=== PATIENT | female | born 1980 | race Caucasian/White ===

== ENCOUNTER 2017-06-08 09:14 | Emergency (ER) | payer OTHER ==
[~2017-06-08] VITALS: Ht 170.2 cm; Wt 97.7 kg
[2017-06-08 09:16] VITALS: TEMP 36.7; Ht 170.2 cm; Wt 97.7 kg
[2017-06-08] MEDS ORDERED: BCPILLS PO (10:00)
[2017-06-08] MEDS ORDERED: DICY20TA35 PO (10:00)
[2017-06-08] MEDS ORDERED: PARO1TAB27 PO (10:00)
[2017-06-08] MEDS ORDERED: METO50TA7 PO (10:00)
--- NOTE | 2017-06-08 10:26 | EMERGENCY ROOM VISIT NOTE ---
History First contact with patient: 10:05 Chief Complaint: ABDOMINAL PAIN Stated Complaint: SEVERE STOMACH CRAMPING Nursing Triage Summary: Pt states she has IBS, had episode this AM of abd discomfort, denies N/V/D. Pt a/ox4, skin w/d/i, lungs CTA, abd soft, positive BS, states abd pain a 3 out of 10. History of Present Illness The patient is a 36 year old female who presents to the Emergency Room with complaints of bowel spasms associated with IBS. The patient states she has been having bowel spasms intermittently for the past 5-7 years. She states there are very few bowel disturbances, but she does chronically get spasms. Patient states over the past 2 months, her symptoms have been worsening. This morning, she states the spasm was so severe that she was unable to stand. The patient states her intent discomfort approximately once per week for the past month. She states the spasms are the same as they have been in the past, but more occurring frequently and they seem to be worse. The patient has been seen by Judith Ugarte from [facility] regarding the bowel spasms and does have a prescription for Bentyl. She states she has not followed up with Judith in at least one year. The patient states at that time, she was not having problems with her bowels. Patient states she normally takes 40 mg of Bentyl once when she experiences spasms, and the symptoms improve very quickly. She states over the past few weeks, after taking the Bentyl, the spasms seem to last at least one hour. The patient describes the pain as severe cramping, radiating into the pelvis on occasion. She states at the present time, she can tell that she is still experiencing the discomfort, but is very mild and passive. She denies any urinary disturbances, constipation, diarrhea, bloody stool, recent illness, nausea, vomiting, or other concerning symptoms. The patient has been experiencing increased stress, recently bought a house, and has been smoking more often than normal. The patient states her diet has been very poor over the past few weeks as well. Review of Systems A complete 10 point review of systems was reviewed with the patient with pertinent positives and negatives as per history of present illness. All else were negative. Past Medical/Surgical History Bowel spasms, IBS Social History Smoking Status: Current Every Day Smoker Smokeless Tobacco Use: No Alcohol Use: occasionally Drug Use: none Marital Status: Housing Status: lives with family Occupation Status: employed Current/Historical Medications Scheduled Control Pills ( Control Pills), 1 TAB PO DAILY Dicyclomine Hcl (Bentyl), 20 MG PO PRN Metoprolol Succ (Toprol Xl) (Toprol-Xl), 50 MG PO DAILY Paroxetine (Paxil), 20 MG PO DAILY Physical Exam Vital Signs Date Time Temp Pulse Resp B/P (MAP) Pulse Ox O2 Delivery O2 Flow Rate FiO2 06/08/17 11:32 83 18 142/78 100 Room Air 06/08/17 09:42 106 18 147/98 99 Room Air 06/08/17 09:16 36.7 139 18 180/146 100 Room Air Physical Exam VITALS: Vitals are noted on the nurse's note and reviewed by myself. Vital signs stable. GENERAL: This is a 36-year-old obese white female, in no acute distress, nondiaphoretic, well-developed well-nourished. SKIN: The skin was without rashes, erythema, edema, or bruising. There is no tenting of the skin. Capillary reflex less than 2 seconds. HEAD: Normocephalic atraumatic. EARS: External auditory canals clear, tympanic membranes pearly english without erythema or effusion bilaterally. EYES: Pupils equal round and reactive to light and accommodation. Conjunctivae without injection, sclerae without icterus. Extraocular movements intact. NOSE: Patent, turbinates without inflammation or discharge. No sinus tenderness. MOUTH: Mucous membranes moist. Tonsils are not enlarged. Pharynx without erythema or exudate. Uvula midline. Airway patent. Tongue does not deviate. NECK: Supple without nuchal rigidity. No lymphadenopathy. No thyromegaly. Cervical spine is nontender. No JVD. HEART: Regular rate and rhythm without murmurs gallops or rubs. LUNGS: Clear to auscultation bilaterally without wheezes, rales or rhonchi. No dullness to percussion. No retractions or accessory muscle use. ABDOMEN: Positive bowel sounds x 4. Normal tympanic percussion. Mild tenderness in RLQ and LLQ on palpation. The abdomen is soft, without masses or organomegaly. Hendrix sign negative. No guarding or rebound tenderness. MUSCULOSKELETAL: No muscle atrophy, erythema, or edema noted. Full range of motion without joint tenderness in all extremities. No tenderness to palpation. Normal gait. Strength 5/5 throughout. NEURO: Patient was alert and oriented to person place and time. Normal sensation to light and sharp touch. Deep tendon reflexes 2+ throughout. No focal neurological deficits. Medical Decision & Procedures ER Provider Diagnostic Interpretation: CBC is without leukocytosis, anemia, thrombocytopenia. Urinalysis did not show signs of infection or blood. There were trace ketones. CMP was without significant electrolyte, renal, hepatic abnormalities. Lipase was normal. Laboratory Results 06/08/17 09:55 Red Blood Count 4.47, Mean Corpuscular Volume 89.0, Mean Corpuscular Hemoglobin 30.0, Mean Corpuscular Hemoglobin Concent 33.7, Mean Platelet Volume 11.9, Neutrophils (%) (Auto) 66.6, Lymphocytes (%) (Auto) 24.6, Monocytes (%) (Auto) 7.2, Eosinophils (%) (Auto) 1.0, Basophils (%) (Auto) 0.3, Neutrophils # (Auto) 4.47, Lymphocytes # (Auto) 1.65, Monocytes # (Auto) 0.48, Eosinophils # (Auto) 0.07, Basophils # (Auto) 0.02 06/08/17 09:55 Test 06/08/17 09:55 06/08/17 10:48 White Blood Count 6.71 K/uL (4.8-10.8) Red Blood Count 4.47 M/uL (4.2-5.4) Hemoglobin 13.4 g/dL (12.0-16.0) Hematocrit 39.8 % (37-47) Mean Corpuscular Volume 89.0 fL (80-100) Mean Corpuscular Hemoglobin 30.0 pg (25-34) Mean Corpuscular Hemoglobin Concent 33.7 g/dl (32-36) Platelet Count 236 K/uL (130-400) Mean Platelet Volume 11.9 fL (7.4-10.4) Neutrophils (%) (Auto) 66.6 % Lymphocytes (%) (Auto) 24.6 % Monocytes (%) (Auto) 7.2 % Eosinophils (%) (Auto) 1.0 % Basophils (%) (Auto) 0.3 % Neutrophils # (Auto) 4.47 K/uL (1.4-6.5) Lymphocytes # (Auto) 1.65 K/uL (1.2-3.4) Monocytes # (Auto) 0.48 K/uL (0.11-0.59) Eosinophils # (Auto) 0.07 K/uL (0-0.5) Basophils # (Auto) 0.02 K/uL (0-0.2) RDW Standard Deviation 41.6 fL (36.4-46.3) RDW Coefficient of Variation 12.8 % (11.5-14.5) Immature Granulocyte % (Auto) 0.3 % Immature Granulocyte # (Auto) 0.02 K/uL (0.00-0.02) Anion Gap 7.0 mmol/L (3-11) Est Creatinine Clear Calc Drug Dose 96.2 ml/min Estimated GFR () 86.6 Estimated GFR (Non- 74.7 BUN/Creatinine Ratio 18.8 (10-20) Calcium Level 8.9 mg/dl (8.5-10.1) Total Bilirubin 0.2 mg/dl (0.2-1) Aspartate Amino Transf (AST/SGOT) 14 U/L (15-37) Alanine Aminotransferase (ALT/SGPT) 21 U/L (12-78) Alkaline Phosphatase 73 U/L (45-117) Total Protein 7.4 gm/dl (6.4-8.2) Albumin 3.5 gm/dl (3.4-5.0) Globulin 3.9 gm/dl (2.5-4.0) Albumin/Globulin Ratio 0.9 (0.9-2) Lipase 178 U/L (73-393) Urine Color YELLOW Urine Appearance CLEAR (CLEAR) Urine pH 5.5 (4.5-7.5) Urine Specific [place] 1.029 (1.000-1.030) Urine Protein NEG (NEG) Urine Glucose (UA) NEG (NEG) Urine Ketones TRACE (NEG) Urine Occult Blood NEG (NEG) Urine Nitrite NEG (NEG) Urine Bilirubin NEG (NEG) Urine Urobilinogen NEG (NEG) Urine Leukocyte Esterase NEG (NEG) ED Course The patient was seen and evaluated as above. IV access obtained and labs drawn. I did offer the patient pain medication, and she declines. I discussed lab results with the patient and her at bedside. Discharge instructions reviewed, and the patient was discharged home in good condition. Medical Decision Etiologies such as bowel spasms, appendicitis, diverticulitis, obstruction, inflammatory bowel disease, renal colic, PUD, biliary pathology, pancreatitis, mesenteric ischemia, aortic pathology, infections, genitourinary, UTI, perforated viscus, as well as others were entertained. This is a 36-year-old female patient who presents today complaining of worsening her bowel spasms. The patient does have a history of IBS of bowel spasms for the past 5-7 years. She states her symptoms now have been worsening over the past 2 months. In the last 2 months, the patient did buy a house, has been smoking more, and has had a very poor diet due to her increased level of stress. She has not followed up with her PCP, who has been managing the bowel spasms. The patient has been taking her Bentyl, and states while it helps, it seems to take longer to help than it had previously. The patient is not having any specific tenderness in any one location of the abdomen. Her symptoms are consistent with previous bowel spasms. I do not feel that imaging is necessary at this time, however it was certainly considered. I suspect the patient's increased level of stress are causing worsening bowel spasms, and encouraged her to follow up with her PCP and consider gastroenterology referral. The patient was in agreement with this assessment and plan. I did offer the patient pain medication throughout her stay as well as for prescription at home , and she declines. Medication Reconcilliation Current Medication List: was personally reviewed by me Blood Pressure Screening Patient's blood pressure: Normal blood pressure Impression Primary Impression: Spasm of bowel Additional Impression: Irritable bowel syndrome Departure Information Dispostion Home / Self-Care Condition GOOD Referrals Laurie Ugarte.Carissa PA-C (PCP) Sindy Ferrell, DO Patient Instructions ED IBS, [facility] Additional Instructions You were seen in the emergency department today for bowel spasms. Labs did not reveal any acute findings which would be concerning for infection. Please continue to take Bentyl as prescribed. You may increase the dose to 40mg three times daily if needed. Follow-up with your PCP and consider GI referral for worsening symptoms. Eat a bland diet, decrease smoking, and try to reduce stress, as all of these things can cause the increased irritation in your bowel. Return to the ED for worsening pain which is not relieved with medication, chest pain, dyspnea, bloody diarrhea, nausea, vomiting, or other concerning symptoms. Problem Qualifiers Additional Impression: Irritable bowel syndrome Irritable bowel syndrome type: without diarrhea Qualified Codes: K58.9 - Irritable bowel syndrome without diarrhea
[2017-06-08 10:37] LABS: BASO % 0.3 %; BASO ABS # 0.02 K/uL (0-0.2); COMPLETE YES; HEMATOCRIT 39.8 % (37-47); IG% 0.3 %; LYMPH % 24.6 %; LYMPH ABS # 1.65 K/uL (1.2-3.4); MEAN CORPUSCULAR HGB CONC 33.7 g/dl (32-36); MEAN PLATELET VOLUME 11.9 fL (7.4-10.4); MONO % 7.2 %; NEUT % 66.6 %; PLATELET COUNT 236 K/uL (130-400); RED BLOOD COUNT 4.47 M/uL (4.2-5.4); WHITE BLOOD COUNT 6.71 K/uL (4.8-10.8)
[2017-06-08 10:44] LABS: BUN/CREATININE RATIO 18.8 (10-20); CALCIUM 8.9 mg/dl (8.5-10.1); CREATININE 0.98 mg/dl (0.60-1.20)
[2017-06-08 10:47] LABS: ALB/GLOB RATIO 0.9 (0.9-2)
[2017-06-08 10:56] LABS: URINE APPEARANCE CLEAR (CLEAR); URINE BILIRUBIN NEG (NEG); URINE COLOR YELLOW; URINE NITRITE NEG (NEG); URINE PH 5.5 (4.5-7.5); URINE SPECIFIC GRAVITY 1.029 (1.000-1.030); UROBILINOGEN NEG (NEG); ZZUR CULT IF INDIC CLEAN CATCH NO
[2017-06-08 10:59] LABS: MANUAL MICROSCOPIC REQUIRED? NO; REVIEW REQ? NO
[2017-06-08 11:32] VITALS: BP 142/78; PULSE 83; O2SAT 100
== END 2017-06-08 12:16 | disposition home or self-care (01) ==
LOC: C.EDB 09:17 → C.EDA 12:16
DX: K58.9 Irritable bowel syndrome, unspecified (principal); F17.200 Nicotine dependence, unspecified, uncomplicated; Z79.3 Long term (current) use of hormonal contraceptives

== ENCOUNTER 2019-06-14 08:15 | Inpatient (IN) ==
--- NOTE | 2019-06-07 09:28 | Anesthesiology Consultation ---
Date of Service June 07, 2019 Assessment & Plan (1) Encounter for pre-operative examination: - Scheduled c/s for Breech positioning, gestational HTN - ASA: on for preeclampsia prevention/perioperative instructions per OB Chart Review Chart Review: Acceptable Risk for Surgery (pending labs AM DOS) and Patient seen in Pre Admission Testing Teaching & Discussion Pre-Anesthesia Teaching/Discussion Notes: Instructed NPO after midnight before surgery,except medications with 15 cc of water. Medication instructions provided according to the PAT guidelines. History Surgery Operation Date: 06/14/19 08:15 Proposed Procedures p Section in LD - Pepe Monahan MD Height/Weight Height: 5 ft 7 in Weight: 112.2 kg Allergies Allergy/AdvReac Type Severity Reaction Status Date / Time adhesive Allergy Mild occasional Verified 06/04/19 10:32 redness/irritation Iodinated Contrast Media Allergy Mild Hives/blotc Verified 06/04/19 10:31 hy Medications Home Medications Medication Instructions Recorded Confirmed Last Taken [id number] fumarate-FA 1 tab PO DAILY 06/04/19 06/04/19 Unknown [] aspirin [Aspirin Low Dose] 81 mg PO QAM 06/04/19 06/04/19 Unknown calcium carbonate [Tums] 200 mg PO QID PRN 06/04/19 06/04/19 Unknown famotidine [Pepcid] 20 mg PO DAILY PRN 06/04/19 06/04/19 Unknown ferrous sulfate 325 mg PO Q2D 06/04/19 06/04/19 Unknown labetalol 200 mg PO BID 06/04/19 06/04/19 Unknown Past Medical History Medical History Anemia mild ( related)/no known hx of prior blood transfusion Anxiety hx/no medications currently GERD (gastroesophageal reflux disease) worsened with Hypertension prior to Obesity Sleep apnea dx'd 04/2019; prescribed CPAP- unable to tolerate/not using a device currently* Exercise / Class Metabolic Activity III < 4 Walking/Shop/Light housework Past Family History Family History Grandmother (Maternal) Family hx of colon cancer Family hx colonic polyps Grandfather (Maternal) Family hx of colon cancer Family hx colonic polyps Mother Family hx of colon cancer Family hx colonic polyps Aunt Family hx colonic polyps Uncle Family hx colonic polyps Other No family history of adverse response to anesthesia Past Surgical History Surgical History History of adenoidectomy History of tonsillectomy Past Anesthesia History No Hx of Anesthesia Complications and No Family Hx of Anesthesia Complications (except sister with PONV) History of PONV No Hx of PONV and No Hx of Motion Sickness Social History Smoking Status: Former smoker tobacco type: cigarettes Smoking cigarettes per day: 1 ppd x 8 years Do You Dip or Chew Tobacco: No Smoking End Date: Quit 2016 Hx Alcohol Use: No Hx Substance Use: No substance use type: does not use Review of Systems + reflux (worsened with ). Patient denies chest pain, shortness of breath, cough, wheezing, palpitations. Physical Exam Vital Signs VITALS BP 116/74 P 86 TEMP 98%RA SP02 97.7 RESP 16 PHYSICAL Full neck and c-spine range of motion. Full TMJ range of motion. TMD 3.5 finger breaths Mallampati Score 3 Dentition: intact Lungs: clear throughout to auscultation Cardiac: regular rate and rhythm, no murmurs noted Spine: normal Carotid arteries: negative bruit Extremities: no edema
--- NOTE | 2019-06-07 09:29 | PAT Medication Instructions ---
Medication Instructions Date of Service June 07, 2019 Home Medications [id number] fumarate-FA [] 1 tab PO DAILY aspirin [Aspirin Low Dose] 81 mg PO QAM calcium carbonate [Tums] 200 mg PO QID PRN famotidine [Pepcid] 20 mg PO DAILY PRN ferrous sulfate 325 mg PO Q2D labetalol 200 mg PO BID ASK your prescriber and surgeon aspirin [Aspirin Low Dose] 81 mg PO QAM DO NOT take the morning of surgery [id number] fumarate-FA [] 1 tab PO DAILY calcium carbonate [Tums] 200 mg PO QID PRN famotidine [Pepcid] 20 mg PO DAILY PRN ferrous sulfate 325 mg PO Q2D Take morning of surgery With a small sip of water, OTHERWISE NOTHING TO EAT OR DRINK AFTER MIDNIGHT: labetalol 200 mg PO BID Take evening before surgery calcium carbonate [Tums] 200 mg PO QID PRN (if needed) famotidine [Pepcid] 20 mg PO DAILY PRN (if needed) labetalol 200 mg PO BID Other Notes If you have any questions please call us at [phone] or [phone] or [phone] or [phone]
--- NOTE | 2019-06-15 01:06 | History and Physical Report ---
DATE OF ADMISSION: 06/15/2019 She is going for a on 06/15/2019 at [facility]. REASON FOR ADMISSION: Term , breech presentation. HISTORY OF PRESENT ILLNESS: The patient is a 38-year-old female 1, para 0 at 39 weeks and 6 days, admitted for elective primary section for michelle breech presentation. MEDICAL HISTORY: Positive for advanced maternal age, chronic hypertension on labetalol, and group B strep positive, and large for gestational age baby, also obesity class 2. SOCIAL HISTORY: The patient is a former smoker. Denies alcohol or drug use. FAMILY HISTORY: Noncontributory. REVIEW OF SYSTEMS: Negative. ALLERGIES: IODINATED DIAGNOSTIC AGENTS. CURRENT MEDICATIONS: Include iron, aspirin 81 mg per day, labetalol 200 mg divided 2 times per day, and vitamins. Her course otherwise has been uncomplicated. PHYSICAL EXAMINATION: VITAL SIGNS: Stable. HEENT: Within normal limits. LUNGS: Clear to auscultation. CARDIOVASCULAR: Regular rate and rhythm. ABDOMEN: Soft, gravid. heart tone category 1, breech presentation. NEUROLOGICAL: Intact. EXTREMITIES: Within normal limits. ASSESSMENT: Michelle breech presentation, group B strep positive with chronic hypertension. PLAN: Primary section.
[2019-06-15] MEDS ORDERED: CEFAZOLIN 3,000 MG in DEXTROSE 5% 50 ML IV SCH (06:00)
[2019-06-15] MEDS ORDERED: CITRIC ACID/SODIUM CITRATE 15 ML UDC PO SCH (06:00)
[2019-06-15] MEDS ORDERED: LACTATED RINGER'S 1,000 ML IV SCH ×2 (06:00→09:12)
--- NOTE | 2019-06-15 06:02 | History & Physical Bridge Note ---
Date of Service June 15, 2019 History & Physical Bridge Note I have examined the patient, reviewed the History & Physical and in the interval since the performance of the History & Physical I have noted the following changes of clinical significance: no changes noted
[2019-06-15 06:04] LABS: Basophils # (auto) 0.02 K/uL (0-0.2); Basophils % (auto) 0.2 %; Eosinophils # (auto) 0.05 K/uL (0-0.5); Eosinophils % (auto) 0.4 %; Hematocrit (blood only) 36.7 % (37-47); Hemoglobin 12.5 g/dL (12.0-16.0); Immature Granulocytes # (auto) 0.05 K/uL (0.00-0.02); Immature Granulocytes % (auto) 0.4 %; Lymphocytes # (auto) 1.81 K/uL (1.2-3.4); Lymphocytes % (auto) 15.6 %; Mean Corpuscular Hemoglobin 30.3 pg (25-34); Mean Corpuscular Volume 88.9 fL (80-100); Monocytes # (auto) 0.68 K/uL (0.11-0.59); Monocytes % (auto) 5.9 %; Neutrophils # (auto) 8.99 K/uL (1.4-6.5); Neutrophils % (auto) 77.5 %; Platelet Count 212 K/uL (130-400); RDW Coefficient of Variation 13.5 % (11.5-14.5); Red Blood Count 4.13 M/uL (4.2-5.4)
[2019-06-15 06:07] LABS: Mean Corpuscular Hgb Conc 34.1 g/dL (32-36)
[2019-06-15] MEDS ORDERED: OXYTOCIN 10 UNITS/ML VIAL ONE (06:57)
[2019-06-15] MEDS ORDERED: fentaNYL citrate 100 MCG/2 ML VIAL ONE (06:58)
[2019-06-15] MEDS ORDERED: MoRPHine SULFATE PF 1 MG/ML 10 ML AMP/VIAL ONE (06:58)
--- NOTE | 2019-06-15 07:34 | Obstetrical Progress Note ---
Date of Service June 15, 2019 Subjective Bedside ultrasound done confirming breech presentation. Results & Data Vital Signs (Past 12 Hours) Vital Signs Temp Pulse Resp BP 06/15/19 05:48 36.4 C L 122 H 18 142/80 H 06/15/19 05:47 122 H 142/80 H
[2019-06-15] MEDS ORDERED: ePHEDrine sulfate 50 MG/ML AMP IV PRN (07:51)
[2019-06-15] MEDS ORDERED: NALOXONE HCL 1 MG in SODIUM CHLORIDE 0.9% 1000ML 1,000 ML IV PRN (07:51)
[2019-06-15] MEDS ORDERED: MEPERIDINE HCL 25 MG/ML CARP IV PRN (07:51)
[2019-06-15] MEDS ORDERED: MoRPHine SULFATE PF 1 MG/ML 10 ML AMP/VIAL INT SPINAL ONE (07:51)
[2019-06-15] MEDS ORDERED: NALOXONE HCL 0.08 MG in SYRINGE 1.8 ML IV PRN (07:51)
[2019-06-15] MEDS ORDERED: DiphenhydrAMINE HCL 50 MG/ML VIAL IV PRN (07:51)
[2019-06-15] MEDS ORDERED: NALBUPHINE HCL INJ 10 MG/ML AMP IV PRN (07:51)
[2019-06-15] MEDS ORDERED: LACTATED RINGER'S 500 ML IV PRN (07:51)
[2019-06-15] MEDS ORDERED: ONDANSETRON INJ 2 MG/ML 2 ML VIAL IV PRN (07:51)
[2019-06-15] MEDS ORDERED: NALOXONE HCL 0.4 MG/1 ML VIAL/CARP IV PRN (07:51)
[2019-06-15] MEDS ORDERED: PHENYLEPHRINE 100MCG/ML 5ML SYR ONE (07:55)
[2019-06-15] MEDS ORDERED: NO NARCOTICS OR SEDATIVES SCH (08:00)
[2019-06-15] MEDS ORDERED: DC INTRASPINAL MORPHINE SCH (08:00)
[2019-06-15] MEDS ORDERED: SODIUM CHLORIDE 0.9% 1000ML 1,000 ML IV SCH (08:00)
[2019-06-15] MEDS ORDERED: ePHEDrine sulfate 50 MG/ML SYR ONE (08:05)
--- NOTE | 2019-06-15 08:48 | Post Operative Brief Note ---
Immediate Post Op Note v1 Date of Surgery June 15, 2019 Pre & Post Diagnosis Operation Date: 06/15/19 07:30 Pre-Op Diagnosis: Breech Presentation, Gestational Hypertension Post-Op Diagnosis: Breech Presentation, Gestational Hypertension, with delivery of living male child at 0806 I identified the patient and participated in the time-out.: Yes Procedure Operation Date: 06/15/19 07:30 Actual Procedures p Section(Bilateral) - Pepe Monahan MD Surgeon Pepe Monahan MD Mixing Plant Dumper Julianan Estimated Blood Loss 400 Findings Consistent with Post-Op Diagnosis Drains Lopez Catheter
[2019-06-15] MEDS ORDERED: NON-FORMULARY MEDICATION (Pnv133-Ferrous Fumarate-Fa [Prenatal] 1 TAB) PO SCH (09:12)
[2019-06-15] MEDS ORDERED: NON-FORMULARY MEDICATION (Ferrous Sulfate 325 MG) PO SCH (09:12)
[2019-06-15] MEDS ORDERED: DIPHTHERIA/TETANUS/PERTUSSIS 0.5 ML SYR/VIAL IM ONE (09:12)
[2019-06-15] MEDS ORDERED: CALCIUM CARBONATE 500 MG CHEWABLE TAB PO PRN (09:12)
[2019-06-15] MEDS ORDERED: SENNA 8.6 MG TAB PO PRN (09:12)
[2019-06-15] MEDS ORDERED: MAGNESIUM HYDROXIDE SUSP 30 ML UDC PO PRN (09:12)
[2019-06-15] MEDS ORDERED: MEASLES, MUMPS & RUBELLA VIRUS VIAL SQ ONE (09:12)
[2019-06-15] MEDS ORDERED: BENZOCAINE 20% AER SPR 82.5 GM CAN EXT PRN (09:12)
[2019-06-15] MEDS ORDERED: HYDROCORTISONE ACETATE 25 MG SUPP PR PRN (09:12)
[2019-06-15] MEDS ORDERED: FAMOTIDINE 20 MG TAB PO PRN (09:12)
[2019-06-15] MEDS ORDERED: SUPERCREAM 0.870% 15 GM JAR EXT PRN (09:12)
--- NOTE | 2019-06-15 09:42 | Anesthesiology Progress Note ---
Date of Service June 15, 2019 Anesthesia Post Procedure Vital Signs Vital Signs: Temp Pulse Resp BP Pulse Ox 06/15/19 09:39 75 133/65 06/15/19 09:38 75 98 06/15/19 09:33 94 H 98 06/15/19 09:29 82 127/62 06/15/19 09:28 83 99 06/15/19 09:23 87 100 06/15/19 09:19 84 123/66 06/15/19 09:18 88 100 06/15/19 09:13 87 100 06/15/19 09:09 86 130/65 06/15/19 09:08 95 H 100 06/15/19 09:03 90 100 06/15/19 08:59 88 127/63 06/15/19 08:58 89 100 06/15/19 08:53 95 H 100 06/15/19 08:49 88 116/62 06/15/19 08:48 87 100 06/15/19 05:48 97.5 F L 122 H 18 142/80 H 06/15/19 05:47 122 H 142/80 H Transfer of Care Handoff Completed per policy Notes Mental Status: alert / awake / arousable and participated in evaluation Nausea / Vomiting: adequately controlled Pain: adequately controlled Airway Patency, RR, SpO2: stable & adequate BP & HR: stable & adequate Hydration State: stable & adequate Neuraxial Anesthesia: was administered and sensory block is resolving Anesthetic Complications: no major complications apparent and Pt Satisfied with anesthetic care
[2019-06-15] MEDS: OXYTOCIN 20 UNITS in LACTATED RINGER'S 1,000 ML IV SCH ×2 (10:15→18:23)
[2019-06-15] MEDS: LABETALOL HCL 200 MG TAB PO SCH ×2 (10:17→20:45)
[2019-06-15] MEDS: ASPIRIN 81 MG ECTAB PO SCH (10:18)
[2019-06-15] MEDS: KETOROLAC 30 MG/ML VIAL IV PRN ×2 (12:08→23:48)
[2019-06-15] MEDS: SIMETHICONE 80 MG CHEW PO SCH ×3 (13:00→20:44)
[2019-06-15] MEDS: DOCUSATE SODIUM 100 MG CAP PO SCH (20:44)
[2019-06-16] MEDS ORDERED: ONDANSETRON INJ 2 MG/ML 2 ML VIAL IV PRN (01:53)
[2019-06-16] MEDS ORDERED: KETOROLAC 30 MG/ML VIAL IV PRN (01:53)
[2019-06-16] MEDS ORDERED: PROMETHAZINE HCL 25 MG in SODIUM CHLORIDE 0.9% 50 ML IV PRN (01:53)
[2019-06-16] MEDS ORDERED: MEPERIDINE HCL 50 MG/ML CARP IV PRN (01:53)
[2019-06-16] MEDS ORDERED: DiphenhydrAMINE HCL 50 MG/ML VIAL IV PRN (01:53)
--- NOTE | 2019-06-16 02:17 | Operative Report ---
DATE OF OPERATION: 06/15/2019 PREOPERATIVE DIAGNOSIS: Term breech presentation. POSTOPERATIVE DIAGNOSIS: Term breech presentation. PROCEDURE: Primary section, low segment transverse. SURGEON: Pepe Monahan MD SALES RECRUITING COORDINATOR: Dr. Preciado. ANESTHESIA: Spinal with Duramorph. FINDINGS: Live male, Apgars 8 and 9; 9 pounds 6.4 ounces, michelle breech presentation. ESTIMATED BLOOD LOSS: 400 mL. TOTAL FLUIDS: 1100 mL. URINE OUTPUT: 50 mL. COMPLICATIONS: None. SURGICAL SPECIMEN: Cord blood and placenta. CLINICAL HISTORY: The patient is a 38-year-old female, para 0-0-0-0 at 39 weeks and 6 days, admitted for an elective primary section for michelle breech presentation. Ultrasound was done at the bedside prior to the procedure to confirm breech presentation. A timeout was called prior to the start of the procedure and antibiotics were given preop. DESCRIPTION OF PROCEDURE: Under satisfactory spinal anesthesia, the patient was prepped and draped in usual sterile fashion. A low Pfannenstiel incision was made entering into the abdominal cavity in successive layers without difficulty. Upon entering into the abdominal cavity, pickups with teeth were used to develop a bladder flap which was sharply dissected down with Metzenbaum scissors. The bladder blade was entered. A low segment transverse incision was made in the lower uterine segment. The incision was nicked. Clear fluid was noted. The incision was widened in the AP diameter. The infant was then delivered without difficulty from the michelle breech presentation. The baby had spontaneous cry and respirations. Delayed cord clamping was then accomplished for 1 minute followed by cutting of the cord and cord blood was then obtained. Apgars were 8 and 9, live male, 9 pounds 6.4 ounces. Placenta was then delivered spontaneously and intact. Uterus was then exteriorized. Ring forceps were then placed on the inferior margin in both angles. Another ring was then used to dilate the cervix. Pitocin was started in the IV. The uterus was firming up. A lap pad was then used to clear out any debris from the uterus. Uterus was closed in double layered closure with 0 Vicryl suture in continuous interlocking fashion followed by second imbricating suture of 0 Vicryl suture. Tubes and ovaries bilaterally were found to be within normal limits. The pelvic cavity was then irrigated to clear. Uterus was then placed back into the normal anatomical position. The initial sponge, needle, and instrument count were found to be correct. The fascia was then reapproximated from both ends using 0 Vicryl suture in a continuous fashion. Subcuticular space was then closed with 3-0 plain suture followed by the skin being closed with 4-0 Monocryl suture. At the end of the procedure, clear urine was noted. Estimated blood loss 400 mL. Total fluids 1100 mL crystalloids. The final sponge, needle and instrument count were found to be correct. The patient had Steri-Strips placed on the dressing and she was taken to recovery room in stable condition. I attest to the content of the Intraoperative Record and any orders documented therein. Any exception s are noted below.
[2019-06-16] MEDS: IBUPROFEN 600 MG TAB PO PRN ×4 (04:50→19:56)
[2019-06-16] MEDS: OXYCODONE/ACETAMINOPHEN 5mg/325mg TAB PO PRN ×4 (04:51→23:30)
[2019-06-16 06:41] LABS: Basophils # (auto) 0.01 K/uL (0-0.2); Basophils % (auto) 0.1 %; Eosinophils % (auto) 0.7 %; Hematocrit (blood only) 32.7 % (37-47); Hemoglobin 11.1 g/dL (12.0-16.0); Immature Granulocytes # (auto) 0.05 K/uL (0.00-0.02); Immature Granulocytes % (auto) 0.3 %; Lymphocytes % (auto) 8.3 %; Mean Corpuscular Hemoglobin 30.2 pg (25-34); Mean Corpuscular Hgb Conc 33.9 g/dL (32-36); Mean Corpuscular Volume 89.1 fL (80-100); Monocytes % (auto) 6.9 %; Neutrophils # (auto) 12.11 K/uL (1.4-6.5); Neutrophils % (auto) 83.7 %; Platelet Count 185 K/uL (130-400); RDW Coefficient of Variation 13.5 % (11.5-14.5); RDW Standard Deviation 44.3 fL (36.4-46.3); Red Blood Count 3.67 M/uL (4.2-5.4); White Blood Count 14.47 K/uL (4.8-10.8)
--- NOTE | 2019-06-16 08:07 | Obstetrical Progress Note ---
Date of Service June 16, 2019 Subjective Patient is seen and examined. She feels well, no complaints. Pain is under control with oral meds. Ambulating without dizziness Voiding without difficulty Tolerating regular diet with out N&V Flatus + BM NEG Bleeding is minimal No fever/ chills/ CP/ SOB/ N&V/ Leg pain Breast feeding without problems Vital Signs Temp Pulse Pulse Resp BP BP Pulse Ox 06/16/19 07:25 37.2 C 99 H 18 138/86 97 06/16/19 04:40 36.4 C L 86 16 129/79 96 06/16/19 02:20 16 99 06/16/19 01:20 16 97 06/16/19 00:20 14 98 06/15/19 23:20 36.8 C 98 H 16 121/78 96 06/15/19 22:30 20 97 06/15/19 21:00 18 99 06/15/19 20:07 18 99 06/15/19 19:00 36.7 C 82 18 135/83 98 06/15/19 18:00 18 98 06/15/19 17:00 18 96 06/15/19 16:00 16 98 06/15/19 15:15 37 C 73 16 136/87 97 06/15/19 15:00 16 97 06/15/19 14:15 97 H 16 L 06/15/19 13:26 14 97 06/15/19 13:15 37.0 C 81 14 118/79 97 06/15/19 12:15 36.5 C 86 18 132/84 97 06/15/19 11:43 91 H 98 06/15/19 11:39 89 144/89 H 06/15/19 11:38 84 96 06/15/19 11:33 86 98 06/15/19 11:29 88 150/84 H 06/15/19 11:28 80 98 06/15/19 11:23 86 98 06/15/19 11:18 80 98 06/15/19 11:13 87 97 06/15/19 11:09 85 135/68 06/15/19 11:08 86 99 06/15/19 11:03 96 H 98 06/15/19 10:59 93 H 141/73 H 06/15/19 10:58 94 H 98 06/15/19 10:53 97 H 100 06/15/19 10:50 18 06/15/19 10:49 83 144/73 H 06/15/19 10:48 84 99 06/15/19 10:43 79 98 06/15/19 10:39 88 143/70 H 06/15/19 10:38 81 99 06/15/19 10:33 83 98 06/15/19 10:29 86 137/73 06/15/19 10:28 92 H 100 06/15/19 10:23 83 99 06/15/19 10:20 18 06/15/19 10:19 85 144/76 H 06/15/19 10:18 87 98 06/15/19 10:13 102 H 98 06/15/19 10:09 160 H 144/63 H 06/15/19 10:08 81 99 06/15/19 10:03 83 99 06/15/19 09:59 88 134/65 06/15/19 09:58 83 99 06/15/19 09:53 86 99 06/15/19 09:50 18 06/15/19 09:49 140/70 06/15/19 09:48 81 99 06/15/19 09:43 88 98 06/15/19 09:40 18 06/15/19 09:39 75 133/65 06/15/19 09:38 75 98 06/15/19 09:33 94 H 98 06/15/19 09:30 18 06/15/19 09:29 82 127/62 06/15/19 09:28 83 99 06/15/19 09:23 87 100 06/15/19 09:20 18 06/15/19 09:19 84 123/66 06/15/19 09:18 88 100 06/15/19 09:13 87 100 06/15/19 09:10 18 06/15/19 09:09 86 130/65 06/15/19 09:08 95 H 100 06/15/19 09:03 90 100 06/15/19 09:00 18 06/15/19 08:59 88 127/63 06/15/19 08:58 89 100 06/15/19 08:53 95 H 100 06/15/19 08:50 36.4 C L 18 06/15/19 08:49 88 116/62 06/15/19 08:48 87 100 Intake and Output 06/15/19 06/16/19 06/16/19 22:59 06:59 14:59 Intake Total 502 / 2422 Output Total 350 / 1110 450 / 1110 Balance 152 / 1312 -450 / 1312 Intake: IV 502 / 1502 Pitocin 20 Units In Lr 1,000 ml 502 / 1002 @ 125 mls/hr IV .[id number] [facility] Rx# :[id number] Output: Urine 300 / 300 Urine Amount (Catheter) 350 / 660 150 / 660 Lopez/Indwelling 350 / 660 150 / 660 06/16/19 Range/Units 06:24 WBC 14.47 H (4.8-10.8) K/uL RBC 3.67 L (4.2-5.4) M/uL Hgb 11.1 L (12.0-16.0) g/dL Hct 32.7 L (37-47) % MCV 89.1 (80-100) fL MCH 30.2 (25-34) pg MCHC 33.9 (32-36) g/dL RDW Std Deviation 44.3 (36.4-46.3) fL RDW Coeff of Shauna 13.5 (11.5-14.5) % Plt Count 185 (130-400) K/uL MPV 12.0 H (7.4-10.4) fL Immature Gran % (Auto) 0.3 % Neut % (Auto) 83.7 % Lymph % (Auto) 8.3 % Mckenzie % (Auto) 6.9 % Eos % (Auto) 0.7 % Baso % (Auto) 0.1 % Immature Gran # (Auto) 0.05 H (0.00-0.02) K/uL Neut # (Auto) 12.11 H (1.4-6.5) K/uL Lymph # (Auto) 1.20 (1.2-3.4) K/uL Mckenzie # (Auto) 1.00 H (0.11-0.59) K/uL Eos # (Auto) 0.10 (0-0.5) K/uL Baso # (Auto) 0.01 (0-0.2) K/uL PE: General: Alert, orientedx3, NAD CVS: S1S2 RRR Lungs; CTAB Abd: soft, NT, ND, BS+, fundus firm, below Umbilicus Incision/ Dressing: Clean, dry, intact Perineum intact, Lochia rubra minimal Ext; NT, no edema AP: 38 yo s/p C Section, pod# 1 VSS Afebrile doing well Continue routine postop care Encourage ambulation, PO intake All questions were answered Results & Data Vital Signs (Past 12 Hours) Vital Signs Temp Pulse Resp BP Pulse Ox 06/16/19 07:25 37.2 C 99 H 18 138/86 97 06/16/19 04:40 36.4 C L 86 16 129/79 96 06/16/19 02:20 16 99 06/16/19 01:20 16 97 06/16/19 00:20 14 98 06/15/19 23:20 36.8 C 98 H 16 121/78 96 06/15/19 22:30 20 97 06/15/19 21:00 18 99 06/15/19 20:07 18 99
[2019-06-16] MEDS: DOCUSATE SODIUM 100 MG CAP PO SCH ×2 (08:44→20:16)
[2019-06-16] MEDS: FERROUS SULFATE 325 MG TAB PO SCH (08:44)
[2019-06-16] MEDS: SIMETHICONE 80 MG CHEW PO SCH ×4 (08:44→20:16)
[2019-06-16] MEDS: PRENATAL VITAMIN 1 TAB PO SCH (08:44)
[2019-06-16] MEDS: LABETALOL HCL 200 MG TAB PO SCH ×2 (10:56→20:16)
[2019-06-16] MEDS: ASPIRIN 81 MG ECTAB PO SCH (10:56)
[2019-06-16] MEDS ORDERED: bisacodyL 5 MG TABEC PO SCH (20:00)
[2019-06-17 06:41] LABS: Hematocrit (blood only) 31.4 % (37-47); Hemoglobin 10.6 g/dL (12.0-16.0)
--- NOTE | 2019-06-17 08:11 | Surgery Progress Note ---
Date of Service June 17, 2019 Subjective POD#2 Physical Exam Constitutional: WD/WN, vitals as above comfortable abdomen soft and non- tender incision clean dry and intact for discharge home Results & Data Vital Signs (Past 12 Hours) Vital Signs Temp Pulse Resp BP Pulse Ox 06/16/19 23:20 36.3 C L 97 H 17 134/82 96
[2019-06-17] MEDS: LABETALOL HCL 200 MG TAB PO SCH (08:29)
[2019-06-17] MEDS: OXYCODONE/ACETAMINOPHEN 5mg/325mg TAB PO PRN ×2 (08:29→12:55)
[2019-06-17] MEDS: DOCUSATE SODIUM 100 MG CAP PO SCH (08:29)
[2019-06-17] MEDS: SIMETHICONE 80 MG CHEW PO SCH ×2 (08:29→12:56)
[2019-06-17] MEDS: ASPIRIN 81 MG ECTAB PO SCH (08:29)
[2019-06-17] MEDS: FERROUS SULFATE 325 MG TAB PO SCH (08:29)
[2019-06-17] MEDS: PRENATAL VITAMIN 1 TAB PO SCH (08:29)
[2019-06-17] MEDS: IBUPROFEN 600 MG TAB PO PRN ×2 (08:30→12:56)
[2019-06-17] MEDS ORDERED: bisacodyL 10 MG SUPP PR PRN (08:58)
== END 2019-06-17 13:40 | disposition home or self-care (01) | DRG 787 ==
LOC: EDSTATUS 08:15 → 4S1 06-15 05:36 → 4S2 06-15 12:15